=== PATIENT | female | born 2000 | race African-American/Black ===

== ENCOUNTER 2023-05-04 20:13 | Emergency (ER) | payer SELFPAY ==
[~2023-05-04] VITALS: Ht 162.6 cm; Wt 62.3 kg
[2023-05-04 20:25] VITALS: BP 139/82; PULSE 83; RESP 17; TEMP 98.3
== END 2023-05-04 21:19 | disposition home or self-care (01) ==
LOC: EMS 20:16
DX: Z32.02 Encounter for pregnancy test, result negative (principal)
CPT/HCPCS: 84703; 99283